=== PATIENT | male | born 1990 | race Caucasian/White ===

== ENCOUNTER 2020-04-21 16:38 | Emergency (ER) | payer MEDICAID ==
[~2020-04-21] VITALS: Ht 177.8 cm; Wt 82.0 kg
[2020-04-22] MEDS ORDERED: LORAZEPAM 1MG TABLET PO ONE (01:45)
[2020-04-22] MEDS ORDERED: MORPHINE SULFATE 10 MG/ML CPJ IM ONE (01:45)
[2020-04-22 06:55] VITALS: BP 140/90
== END 2020-04-22 07:00 | disposition home or self-care (01) ==
LOC: ER 16:38
DX: S52.392A Other fracture of shaft of radius, left arm, initial encounter for closed fracture (principal); S52.292A Other fracture of shaft of left ulna, initial encounter for closed fracture; W17.89XA Other fall from one level to another, initial encounter; Y93.89 Activity, other specified; Y92.89 Other specified places as the place of occurrence of the external cause
CPT/HCPCS: 25605; 73090; 93005; 96372; 99284; J2270

== ENCOUNTER 2023-11-25 15:49 | Emergency (ER) | payer SELFPAY ==
[~2023-11-25] VITALS: Ht 165.1 cm; Wt 75.0 kg
[2023-11-25 16:09] VITALS: BP 132/84; PULSE 100; RESP 18; TEMP 98.2; O2SAT 98
[2023-11-25] MEDS ORDERED: NAPR-1176 MT (18:58)
[2023-11-25] MEDS ORDERED: OFLO5DRO4 LEFT EAR (19:01)
== END 2023-11-25 19:22 | disposition home or self-care (01) ==
LOC: ER 15:49
DX: H60.91 Unspecified otitis externa, right ear (principal)
CPT/HCPCS: 99283